=== PATIENT | female | born 1930 | race Caucasian/White ===

== ENCOUNTER 2017-03-15 09:48 | Inpatient (IN) | payer OTHER, MEDICARE ==
[~2017-03-15] VITALS: Ht 180.3 cm; Wt 84.1 kg
[2017-03-15] VITALS (9 sets, daily range): BP systolic 118–163; BP diastolic 64–85
--- NOTE | ~2017-03-15 | PR ---
[place], [place] PROGRESS NOTE NAME: KEITH KIRKLAND UNIT #: [id number] ROOM: 408 DOCTOR: NICKY GREEN MD BIRTHDATE: [birth year] DOS: 03/19/2017 REASON FOR VISIT: Atrial fibrillation. SUBJECTIVE: The patient is alert. No acute distress. She is very hard of hearing. Denies any chest pain or palpitations. She slept good last night. No dizziness. No orthopnea. REVIEW OF SYSTEMS: Review of the 8 systems negative except as mentioned above. RHYTHM STRIPS: The patient was off the monitor. PHYSICAL EXAMINATION: VITAL SIGNS: Blood pressure 152/90, respiratory rate is 16, heart rate 81. GENERAL: Alert, comfortable, in no acute distress. HEENT: Pupils are round and equal. No jaundice. Tongue was moist and pharynx was clear. NECK: Supple, no distended neck veins, no carotid bruit. CHEST: Symmetrical, nontender. LUNGS: Few scattered rhonchi, but good air entry bilaterally. HEART: Irregular. ABDOMEN: Benign, nontender. Bowel sounds normal. EXTREMITIES: Showed no edema. Distal pulses are palpable. SKIN: Warm and dry. No cyanosis, no clubbing. NEUROLOGIC: The patient is alert, oriented. No focal neurologic deficit. Medications and labs are reviewed as available. IMPRESSION: 1. Atrial fibrillation, rates are currently better. Continue her Cardizem and apixaban. 2. Urinary tract infection with pyelonephritis, per PCP. 3. Altered mental status, better. 4. Hypertension. PLAN: 1. Continue current medications and monitor her heart rate and blood pressures. 2. There is no family at bedside at the time of my examination. [place], [place] PROGRESS NOTE NAME: KEITH KIRKLAND UNIT #: [id number] ROOM: 408 DOCTOR: NICKY GREEN MD BIRTHDATE: [birth year] NICKY GREEN MD CM:PNTRANS [id number] NICKY GREEN MD 03/19/17 [id number] interface
--- NOTE | ~2017-03-15 | PR ---
[place], [place] PROGRESS NOTE NAME: KEITH KIRKLAND [facility] #: [id number] UNIT #: [id number] ROOM: 408 DOCTOR: ENA STEWARD MD BIRTHDATE: [birth year] DOS: 03/16/2017 SUBJECTIVE: The patient was seen today at her bedside for followup of her atrial fibrillation and rapid ventricular response. She is an 86-year-old resident of a [facility] who does have a history of significant dementia. She was brought in after being found unresponsive at the [facility]. We were asked to assist in the management of her permanent atrial fibrillation and rapid ventricular response. When I saw her yesterday, she was obtunded. Today, she is much more awake and alert. She was found to have bacteremia which most likely is of urinary infection source. With appropriate antibiotics, she has improved dramatically. She remains very hard of hearing and easily confused, but is much more pleasant and arousable today. She specifically denies chest pain or palpitations. PHYSICAL EXAMINATION: VITAL SIGNS: Today, her pulse is 92 and irregularly irregular. Blood pressure is 118/65. She is afebrile. She weighs 84.1 kilograms. HEENT: Normocephalic and atraumatic. Extraocular muscles are intact. Sclerae are clear. Pupils are equal, round and react to light. The oral mucosa is moist. Her tongue is midline. NECK: Supple. She has no jugular distention. Carotids are full. LUNGS: Respirations are unlabored. HEART: Has an irregularly irregular rhythm without murmurs or gallops. The PMI was not displaced. EXTREMITIES: Showed no edema. Peripheral pulses were diminished in the feet bilaterally. LABORATORY DATA: The monitor shows that her heart rate is better controlled today. She remains on a diltiazem drip. IMPRESSION: 1. Atrial fibrillation with rapid ventricular response. 2. History of permanent atrial fibrillation. 3. History of stroke, likely due to cardioembolic phenomenon from atrial fibrillation. 4. Bacteremia. 5. Rapid ventricular response to atrial fibrillation, most likely due to underlying sepsis, most likely of urinary tract origin. PLAN: The patient is much more awake today. We will continue apixaban for stroke prophylaxis and place her on diltiazem p.o., so that we can wean her off the intravenous diltiazem. We will continue to follow her with her other physicians. We thank the hospitalist group for asking our advice regarding her care. [place], [place] PROGRESS NOTE NAME: [facility]IRKLAND [id number] UNIT #: [id number] ROOM: 408 DOCTOR: ENA STEWARD MD BIRTHDATE: [birth year] ENA STEWARD MD CM:PNTRANS 18 ENA STEWARD MD 03/17/17 0043 interface
--- NOTE | ~2017-03-15 | PR ---
[place], [place] PROGRESS NOTE NAME: KEITH KIRKLAND UNIT #: [id number] ROOM: 408 DOCTOR: NICKY GREEN MD BIRTHDATE: [birth year] DOS: 03/18/2017 REASON FOR VISIT: Atrial fibrillation. HISTORY OF PRESENT ILLNESS: The patient is feeling better. Denies any chest pain. She is hard of hearing, no dizziness, no syncope, no orthopnea, no fever or chills. No cough. RHYTHM STRIPS: The patient is in atrial fibrillation. REVIEW OF SYSTEMS: Review of the 8 systems negative except as mentioned above. PHYSICAL EXAMINATION: VITAL SIGNS: Reviewed. GENERAL: The patient is alert and comfortable, no acute distress. HEENT: Pupils are round and equal. No jaundice. Tongue was moist and pharynx clear. NECK: Supple, no distended neck veins, no carotid bruit. CHEST: Symmetrical, nontender. LUNGS: A few scattered rhonchi. HEART: Irregularly irregular, grade 1/6 systolic murmur. ABDOMEN: Benign, nontender. Bowel sounds normal. EXTREMITIES: Showed no edema. Distal pulses are palpable. SKIN: Warm and dry. No cyanosis, no clubbing. NEUROLOGIC: The patient is alert. No focal neurologic deficit. IMPRESSION: 1. Atrial fibrillation with rapid ventricular rate, rates are better today, chronic atrial fibrillation. Continue her apixaban and Cardizem for rate control. 2. Pyelonephritis . 3. Urinary tract infection. 4. Continue rest of the medications. 5. There is no family at bedside. 6. Adjust the Cardizem for her blood pressure and heart rates. [place], [place] PROGRESS NOTE NAME: KEITH KIRKLAND UNIT #: [id number] ROOM: 408 DOCTOR: NICKY GREEN MD BIRTHDATE: [birth year] NICKY GREEN MD CM:PNTRANS [id number] NICKY GREEN MD 03/20/17 0615 interface
--- NOTE | ~2017-03-15 | CON ---
[place], [place] REPORT OF CONSULTATION NAME: KEITH KIRKLAND UNIT #: [id number] ROOM: 408 DOCTOR: ENA STEWARD MD BIRTHDATE: [birth year] DOS: 03/15/2017 REASON FOR CONSULTATION: Atrial fibrillation with rapid ventricular response and elevated troponin levels. HISTORY OF PRESENT ILLNESS: The patient is an 86-year-old resident of a [facility]. Unfortunately, the patient is unable to give any history. The history is obtained entirely from the Emergency Room records and much of their information was obtained from records at the alf. Reportedly, the patient does have a history of dementia, but is still conversant and active in the alf. She was found to be unresponsive and noted to be tachycardic. She was also nonverbal, but awake. Emergency medical services were called. She was initially hypoxemic, but oxygenation improved with supplementation. The patient was transferred to [facility] where she was found to be in atrial fibrillation with a rapid ventricular response. She was placed on diltiazem with improvement in her heart rate. The old records indicate that the patient has had atrial fibrillation in the past. She is currently on Eliquis for stroke prophylaxis. She has had a previous stroke. PAST MEDICAL HISTORY: Includes 1. Previous stroke. 2. Permanent atrial fibrillation. 3. Anticoagulation with Eliquis. 4. Dementia. 5. Hyperlipidemia. 6. Vitamin D deficiency. MEDICATIONS: Prior to admission, acetaminophen 325 q.4h. p.r.n., amino acids by capsule daily, apixaban 2.5 mg b.i.d., aspirin 81 mg daily, atorvastatin 10 mg daily, cholecalciferol 1000 units daily, Depakote 250 mg q.12h., Namzaric 07/22 daily, Dulcolax suppositories p.r.n. and nitroglycerin sublingually p.r.n. ALLERGIES: The chart indicates that she has no known drug allergies. FAMILY HISTORY: Not available. SOCIAL HISTORY: The patient resides in a alf. Her cigarette history and alcohol history are not available. PHYSICAL EXAMINATION: GENERAL: The patient is an elderly white female who is awake, alert and oriented. VITAL SIGNS: Pulse is currently 84 and irregularly irregular. Blood pressure is 126/70. She is on a diltiazem drip at 5 mg per hour. Her temperature is 99.4. She weighs 84.1 kilograms. HEENT: Normocephalic, atraumatic. Extraocular muscles are intact. Sclerae are clear. Pupils are round and reactive to light. The oral mucosa is moist. Tongue is midline. [place], [place] REPORT OF CONSULTATION NAME: KEITH KIRKLAND UNIT #: [id number] ROOM: 408 DOCTOR: ENA STEWARD MD BIRTHDATE: [birth year] NECK: Supple. She has no jugular distention. Carotids are full and I heard no bruits. LUNGS: Respirations were unlabored. The chest had decreased breath sounds at the bases. I heard no wheezes or rales. CARDIOVASCULAR: Her heart had an irregularly irregular rhythm without murmurs or gallops. The PMI was not displaced. ABDOMEN: Soft and normally active without masses, organomegaly or bruits. EXTREMITIES: Showed no edema. Her left calf seemed tender, but there were no palpable cords, her right calf was minimally tender. Both legs appeared to be about the same size. Peripheral pulses are diminished in the feet bilaterally. LABORATORY DATA: Electrocardiogram on admission showed atrial fibrillation with a rapid ventricular response and poor precordial R-wave progression along with nonspecific ST and T-wave changes. Chest x-ray on admission showed no acute cardiopulmonary process. Hemoglobin is 13.1, white count 5500, platelet count 106,000. Sodium is 146, potassium 4.4, chloride 105, CO2 24, BUN 29, creatinine 1.27, GFR is estimated at 40. Lactic acid level was 3.7. Troponin levels 0.057 on admission and elevated further at 0.072 upon repeat. Urinalysis shows 3+ blood and 2+ protein. Urine nitrite is positive. IMPRESSIONS: 1. Atrial fibrillation with rapid ventricular response. 2. Reported history of permanent atrial fibrillation. 3. History of stroke probably due to cardioembolic phenomenon from atrial fibrillation. 4. Rapid ventricular response to atrial fibrillation, most likely due to underlying sepsis, possibly of urinary tract origin. PLAN: The patient is currently on a diltiazem intravenously and I would continue that until her infection is adequately controlled and any dehydration has been corrected. I would keep her on apixaban in reduced dose for stroke prophylaxis. If she is unable to take orally, I would place her on intravenous unfractionated heparin for the time being. We will obtain an echocardiogram to assess left ventricular function and I will follow her with her other physicians in the hospital. I thank the hospitalist group for asking our advice regarding her care. [place], [place] REPORT OF CONSULTATION NAME: KEITH KIRKLAND UNIT #: [id number] ROOM: 408 DOCTOR: ENA STEWARD MD BIRTHDATE: [birth year] ENA STEWARD MD CM:CONSTR:REPORT OF CONSULTATION 19 03/15/178 interface
--- NOTE | ~2017-03-15 | PR ---
[place], [place] PROGRESS NOTE NAME: KEITH KIRKLAND UNIT #: [id number] ROOM: 408 DOCTOR: ENA STEWARD MD BIRTHDATE: [birth year] DOS: SUBJECTIVE: The patient was seen at her bedside for followup of her atrial fibrillation with rapid ventricular response. She is an 86-year-old prison resident with severe dementia who presented to the hospital unresponsive. She was in atrial fibrillation with rapid ventricular response. Her rate was controlled with intravenous diltiazem. She was found to have Gram-negative bacteremia, which most likely is from urinary tract source. Studies indicate that she does have pyelonephritis and possible cholecystitis as well. She is being managed conservatively and medically for the time being. Her heart rates have decreased and she is more alert, but still confused. PHYSICAL EXAMINATION: VITAL SIGNS: Today, her pulse is 85 and irregularly irregular. Blood pressure is 137/70. She is afebrile. NECK: Supple. She has no jugular distention. Carotids are full. LUNGS: Respirations are unlabored. Her chest is clear. HEART: Has an irregularly irregular rhythm. EXTREMITIES: Showed trace edema bilaterally. Her echocardiogram yesterday showed normal left ventricular size with mild concentric left ventricular hypertrophy. Left ventricular segmental wall motion was normal with normal systolic function, ejection fraction was 65%. Left atrium was mildly dilated. She had aortic sclerosis without stenosis and with mild aortic insufficiency. IMPRESSION: 1. Atrial fibrillation with rapid ventricular response. 2. History of permanent atrial fibrillation. 3. History of cardioembolic stroke. 4. Rapid ventricular response to atrial fibrillation, most likely due to sepsis. 5. Possible pyelonephritis with urinary sepsis. PLAN: We will continue to adjust her diltiazem to control her heart rate. No other cardiac workup is planned at this time. We thank the hospitalist group for asking our advice regarding her care. [place], [place] PROGRESS NOTE NAME: KEITH KIRKLAND UNIT #: [id number] ROOM: 408 DOCTOR: ENA STEWARD MD BIRTHDATE: [birth year] ENA STEWARD MD CM:PNTRANS [phone] ENA STEWARD MD 03/18/17 0155 interface
[2017-03-15] MEDS ORDERED: ASPIRIN CHEWABL81 MG PO (09:55)
[2017-03-15] MEDS ORDERED: DULCOLAX10 M1 R (09:56)
[2017-03-15] MEDS ORDERED: DEPAKOTE250 MG PO (09:56)
[2017-03-15] MEDS ORDERED: ELIQUIS2.5 M1 PO (09:57)
[2017-03-15] MEDS ORDERED: LIPITOR10 MG PO (09:57)
[2017-03-15] MEDS ORDERED: AMINO ACID1 EACH PO (09:57)
[2017-03-15] MEDS ORDERED: NAMZARIC 28 MG1 EACH PO (09:58)
[2017-03-15] MEDS ORDERED: NITROSTAT0.4 MG SL (09:58)
[2017-03-15] MEDS ORDERED: TYLENOL325 M1 PO (09:59)
[2017-03-15] MEDS ORDERED: VITAMIN D-32000 UNI1 PO (09:59)
[2017-03-15 10:35] LABS: HEMATOCRIT 40.7 % (37.0-47.0); HEMOGLOBIN 13.1 g/dl (12.0-16.0); MEAN CELL VOLUME 103.6 fl (81.0-99.0); MEAN CORPUSCULAR HGB 33.3 pg (27.0-31.0); MEAN CORPUSCULAR HGB CONC 32.2 g/dl (33.0-37.0); RED BLOOD COUNT 3.93 10*6/uL (4.10-5.10); RED CELL DISTRI WIDTH 13.3 % (0-14.5); WHITE BLOOD COUNT 5.5 10*3/uL (4.8-10.8)
[2017-03-15 10:43] LABS: PROTHROMBIN TIME 10.9 SECONDS (9.0-12.4)
[2017-03-15 10:53] LABS: ALBUMIN 2.7 gm/dl (3.1-4.5); BILIRUBIN, TOTAL 0.9 mg/dl (0.2-1.0); POTASSIUM 4.4 mmol/L (3.5-5.1); TOTAL PROTEIN 7.8 gm/dL (6.4-8.2)
[2017-03-15 10:56] LABS: BASOPHIL # 0.1 10*3/uL (0-0.1); BASOPHILS 1 % (0-1); LYMPHOCYTE # 0.4 10*3/uL (1.3-4.4); METAMYELOCYTES 2 % (0-0); MONOCYTE # 0.1 10*3/uL (0.1-1.0); MYELOCYTES 2 % (0-0); NEUTROPHIL # 4.7 10*3/uL (2.3-7.9); NEUTROPHILS 86 % (47-73); TOTAL CELLS COUNTED 100 #CELLS; VACUOLATION OF NEUTROPHILS MODERATE
[2017-03-15 10:57] LABS: PLATELET SUFFICIENCY LOW (NORMAL); ROULEAUX SLIGHT
[2017-03-15 11:00] LABS: TROPONIN I 0.057 ng/ml (<0.045)
[2017-03-15 11:02] LABS: MEAN PLATELET VOLUME 10.8 fl (9.6-12.3); PLATELET COUNT AUTOMATED 106 10*3/uL (130-400)
[2017-03-15 11:11] LABS: BILIRUBIN NEGATIVE (NEGATIVE); BLOOD 3+ (NEGATIVE); CLARITY CLOUDY (CLEAR); COLOR YELLOW (YELLOW); GLUCOSE NEGATIVE (NEGATIVE); KETONE 1+ (NEGATIVE); LEUKO ESTERASE TRACE (NEGATIVE); NITRITE POSITIVE (NEGATIVE); PROTEIN 2+ (NEGATIVE); SPECIFIC GRAVITY 1.015 (1.005-1.030)
[2017-03-15 11:18] LABS: BACTERIA 3+; RBC 51-100 rbc/hpf (0-2); URINE REFLEX COMMENT YES (NO)
[2017-03-15 12:32] LABS: LA>2 REFLEX 2 HR DRAW NOW
[2017-03-15 13:19] LABS: LA>2 RFLX FOLLOW UP AT 2 HRS 3.7 mmol/L (0.4-2.0)
[2017-03-15 14:46] LABS: LA>2 REFLEX 4 HR DRAW NOW
[2017-03-15 18:33] LABS: CKMB 0.8 ng/ml (0.5-3.6)
[2017-03-16] VITALS (11 sets, daily range): BP systolic 100–147; BP diastolic 50–85
[2017-03-16 00:35] LABS: CKMB 0.9 ng/ml (0.5-3.6)
[2017-03-16 06:07] LABS: MEAN CELL VOLUME 102.7 fl (81.0-99.0); MEAN CORPUSCULAR HGB 33.4 pg (27.0-31.0); MEAN CORPUSCULAR HGB CONC 32.6 g/dl (33.0-37.0); MEAN PLATELET VOLUME 10.4 fl (9.6-12.3); RED BLOOD COUNT 2.99 10*6/uL (4.10-5.10); RED CELL DISTRI WIDTH 13.4 % (0-14.5); WHITE BLOOD COUNT 12.9 10*3/uL (4.8-10.8)
[2017-03-16 06:10] LABS: HEMATOCRIT 30.7 % (37.0-47.0); PLATELET COUNT AUTOMATED 70 10*3/uL (130-400)
[2017-03-16 06:19] LABS: CKMB 0.5 ng/ml (0.5-3.6)
[2017-03-16 06:20] LABS: HEMOGLOBIN A1c 6.3 % (4.8-5.6)
[2017-03-16 06:26] LABS: LYMPHOCYTE # 0.9 10*3/uL (1.3-4.4); MONOCYTE # 1.3 10*3/uL (0.1-1.0); MYELOCYTES 2 % (0-0); NEUTROPHIL # 10.4 10*3/uL (2.3-7.9); NEUTROPHILS 81 % (47-73); TOTAL CELLS COUNTED 100 #CELLS
[2017-03-16 06:27] LABS: PLATELET SUFFICIENCY LOW (NORMAL); POLYCHROMASIA SLIGHT
[2017-03-16 06:42] LABS: BUN 27 mg/dl (7-24); CARBON DIOXIDE 22 mmol/L (21-32); CHLORIDE 116 mmol/L (98-107); CHOLESTEROL 79 mg/dL (<200); EST GLOM FILT AFRICAN AMERICAN > 60 ml/min; FREE T4 1.29 ng/dl (0.76-1.46); GLUCOSE 122 mg/dL (65-99); HDL CHOLESTEROL 32 mg/dl (40-60); LDL CHOLESTEROL 28 mg/dL (9-159); MAGNESIUM 1.8 mg/dL (1.5-2.1); PHOSPHOROUS 1.9 mg/dL (2.5-4.9); SODIUM 150 mmol/L (136-145); TRIGLYCERIDES 96 mg/dl (<150); VLDL CHOLESTEROL 19 mg/dL (6-40)
[2017-03-16 06:49] LABS: POTASSIUM 3.4 mmol/L (3.5-5.1)
[2017-03-17] VITALS (7 sets, daily range): BP systolic 130–154; BP diastolic 60–78
[2017-03-17 06:13] LABS: HEMATOCRIT 32.1 % (37.0-47.0); HEMOGLOBIN 10.3 g/dl (12.0-16.0); MEAN CELL VOLUME 101.3 fl (81.0-99.0); MEAN CORPUSCULAR HGB 32.5 pg (27.0-31.0); MEAN CORPUSCULAR HGB CONC 32.1 g/dl (33.0-37.0); MEAN PLATELET VOLUME 11.4 fl (9.6-12.3); PLATELET COUNT AUTOMATED 85 10*3/uL (130-400); RED BLOOD COUNT 3.17 10*6/uL (4.10-5.10); RED CELL DISTRI WIDTH 13.4 % (0-14.5); WHITE BLOOD COUNT 12.5 10*3/uL (4.8-10.8)
[2017-03-17 06:49] LABS: BUN 24 mg/dl (7-24); CARBON DIOXIDE 23 mmol/L (21-32); CHLORIDE 111 mmol/L (98-107); EST GLOM FILT AFRICAN AMERICAN > 60 ml/min; GLUCOSE 156 mg/dL (65-99); POTASSIUM 3.2 mmol/L (3.5-5.1); SODIUM 145 mmol/L (136-145)
[2017-03-17 07:37] LABS: BURR CELLS MODERATE; LYMPHOCYTE # 1.6 10*3/uL (1.3-4.4); METAMYELOCYTES 2 % (0-0); MONOCYTE # 1.5 10*3/uL (0.1-1.0); NEUTROPHIL # 9.1 10*3/uL (2.3-7.9); NEUTROPHILS 73 % (47-73); PLATELET SUFFICIENCY LOW (NORMAL); POLYCHROMASIA SLIGHT; TOTAL CELLS COUNTED 100 #CELLS
[2017-03-18] VITALS: BP 149/77
[2017-03-18 06:24] LABS: HEMATOCRIT 30.9 % (37.0-47.0); HEMOGLOBIN 10.1 g/dl (12.0-16.0); MEAN CELL VOLUME 101.3 fl (81.0-99.0); MEAN CORPUSCULAR HGB 33.1 pg (27.0-31.0); MEAN CORPUSCULAR HGB CONC 32.7 g/dl (33.0-37.0); MEAN PLATELET VOLUME 10.7 fl (9.6-12.3); NUCLEATED RED BLOOD CELL 0.2 % (0.0-0.0); PLATELET COUNT AUTOMATED 72 10*3/uL (130-400); RED BLOOD COUNT 3.05 10*6/uL (4.10-5.10); RED CELL DISTRI WIDTH 13.4 % (0-14.5); WHITE BLOOD COUNT 12.3 10*3/uL (4.8-10.8)
[2017-03-18 06:53] LABS: ALBUMIN 1.6 gm/dl (3.1-4.5); ALKALINE PHOSPHATASE 80 U/L (45-117); BILIRUBIN, TOTAL 0.4 mg/dl (0.2-1.0); BUN 17 mg/dl (7-24); C-REACTIVE PROTEIN 8.95 MG/DL (0-0.3); CARBON DIOXIDE 23 mmol/L (21-32); CHLORIDE 109 mmol/L (98-107); EST GLOM FILT AFRICAN AMERICAN > 60 ml/min; GLUCOSE 105 mg/dL (65-99); MAGNESIUM 1.8 mg/dL (1.5-2.1); POTASSIUM 3.4 mmol/L (3.5-5.1); SGOT/AST 17 IU/L (3-35); SGPT/ALT 13 U/L (12-78); SODIUM 140 mmol/L (136-145); TOTAL PROTEIN 5.3 gm/dL (6.4-8.2)
[2017-03-18 07:16] LABS: BASOPHIL # 0.1 10*3/uL (0-0.1); BASOPHILS 1 % (0-1); LYMPHOCYTE # 2.1 10*3/uL (1.3-4.4); METAMYELOCYTES 3 % (0-0); MONOCYTE # 1.6 10*3/uL (0.1-1.0); MYELOCYTES 3 % (0-0); NEUTROPHIL # 7.7 10*3/uL (2.3-7.9); NEUTROPHILS 63 % (47-73); TOTAL CELLS COUNTED 100 #CELLS; TOXIC GRANULATION SLIGHT
[2017-03-18 07:17] LABS: PLATELET SUFFICIENCY LOW (NORMAL)
[2017-03-18 08:00] VITALS: BP 162/92
[2017-03-18 12:00] VITALS: BP 133/73
[2017-03-18 16:00] VITALS: BP 130/52
[2017-03-18 20:00] VITALS: BP 149/60
[2017-03-19] VITALS: BP 155/72
[2017-03-19 06:02] LABS: HEMATOCRIT 33.4 % (37.0-47.0); MEAN CELL VOLUME 99.1 fl (81.0-99.0); MEAN CORPUSCULAR HGB 32.6 pg (27.0-31.0); MEAN CORPUSCULAR HGB CONC 32.9 g/dl (33.0-37.0); MEAN PLATELET VOLUME 10.7 fl (9.6-12.3); PLATELET COUNT AUTOMATED 81 10*3/uL (130-400); RED BLOOD COUNT 3.37 10*6/uL (4.10-5.10); RED CELL DISTRI WIDTH 13.2 % (0-14.5)
[2017-03-19 06:27] LABS: BUN 12 mg/dl (7-24); CARBON DIOXIDE 22 mmol/L (21-32); CHLORIDE 105 mmol/L (98-107); EST GLOM FILT AFRICAN AMERICAN > 60 ml/min; GLUCOSE 107 mg/dL (65-99); MAGNESIUM 1.8 mg/dL (1.5-2.1); PHOSPHOROUS 2.3 mg/dL (2.5-4.9); POTASSIUM 3.8 mmol/L (3.5-5.1); SODIUM 138 mmol/L (136-145)
[2017-03-19 06:39] LABS: EOSINOPHIL # 0.2 10*3/uL (0-0.4); EOSINOPHILS 1 % (1-4); LYMPHOCYTE # 2.2 10*3/uL (1.3-4.4); METAMYELOCYTES 5 % (0-0); MONOCYTE # 1.5 10*3/uL (0.1-1.0); MYELOCYTES 11 % (0-0); NEUTROPHIL # 10.4 10*3/uL (2.3-7.9); NEUTROPHILS 61 % (47-73); PLATELET SUFFICIENCY LOW (NORMAL); TOTAL CELLS COUNTED 100 #CELLS
[2017-03-19 06:40] LABS: POLYCHROMASIA SLIGHT
[2017-03-19 08:00] VITALS: BP 152/90
[2017-03-19 12:00] VITALS: BP 156/78
[2017-03-19 16:00] VITALS: BP 160/90
[2017-03-19 18:00] VITALS: BP 158/82; BP 160/90
[2017-03-19 20:00] VITALS: BP 145/76
[2017-03-20] VITALS: BP 140/90
[2017-03-20 06:30] LABS: HEMATOCRIT 32.8 % (37.0-47.0); HEMOGLOBIN 10.9 g/dl (12.0-16.0); MEAN CELL VOLUME 99.1 fl (81.0-99.0); MEAN CORPUSCULAR HGB 32.9 pg (27.0-31.0); MEAN CORPUSCULAR HGB CONC 33.2 g/dl (33.0-37.0); MEAN PLATELET VOLUME 10.3 fl (9.6-12.3); PLATELET COUNT AUTOMATED 89 10*3/uL (130-400); RED BLOOD COUNT 3.31 10*6/uL (4.10-5.10); RED CELL DISTRI WIDTH 13.1 % (0-14.5); WHITE BLOOD COUNT 17.7 10*3/uL (4.8-10.8)
[2017-03-20 06:59] LABS: ALBUMIN 1.7 gm/dl (3.1-4.5); ALKALINE PHOSPHATASE 81 U/L (45-117); BILIRUBIN, TOTAL 0.4 mg/dl (0.2-1.0); BUN 10 mg/dl (7-24); CARBON DIOXIDE 23 mmol/L (21-32); CHLORIDE 104 mmol/L (98-107); EST GLOM FILT AFRICAN AMERICAN > 60 ml/min; GLUCOSE 114 mg/dL (65-99); MAGNESIUM 1.8 mg/dL (1.5-2.1); SGOT/AST 20 IU/L (3-35); SGPT/ALT 14 U/L (12-78); SODIUM 137 mmol/L (136-145); TOTAL PROTEIN 5.8 gm/dL (6.4-8.2)
[2017-03-20 07:16] LABS: EOSINOPHIL # 0.2 10*3/uL (0-0.4); EOSINOPHILS 1 % (1-4); LYMPHOCYTE # 2.5 10*3/uL (1.3-4.4); METAMYELOCYTES 1 % (0-0); MONOCYTE # 1.4 10*3/uL (0.1-1.0); MYELOCYTES 5 % (0-0); NEUTROPHIL # 12.6 10*3/uL (2.3-7.9); NEUTROPHILS 71 % (47-73); PLATELET SUFFICIENCY LOW (NORMAL); TOTAL CELLS COUNTED 100 #CELLS; TOXIC GRANULATION SLIGHT
[2017-03-20 07:56] VITALS: BP 142/84
[2017-03-20 12:00] VITALS: BP 150/68
[2017-03-20 16:00] VITALS: BP 160/82
[2017-03-20 20:00] VITALS: BP 143/80
[2017-03-21] VITALS: BP 146/73
[2017-03-21 06:54] LABS: HEMATOCRIT 32.6 % (37.0-47.0); HEMOGLOBIN 11.4 g/dl (12.0-16.0); MEAN CORPUSCULAR HGB 33.5 pg (27.0-31.0); WHITE BLOOD COUNT 21.7 10*3/uL (4.8-10.8)
[2017-03-21 07:02] LABS: MEAN CELL VOLUME 95.9 fl (81.0-99.0); PLATELET COUNT AUTOMATED 127 10*3/uL (130-400)
[2017-03-21 07:19] LABS: ALBUMIN 1.7 gm/dl (3.1-4.5); ALKALINE PHOSPHATASE 69 U/L (45-117); BILIRUBIN, TOTAL 0.4 mg/dl (0.2-1.0); BUN 12 mg/dl (7-24); CARBON DIOXIDE 22 mmol/L (21-32); CHLORIDE 105 mmol/L (98-107); EST GLOM FILT AFRICAN AMERICAN > 60 ml/min; GLUCOSE 114 mg/dL (65-99); MAGNESIUM 1.8 mg/dL (1.5-2.1); SGOT/AST 16 IU/L (3-35); SGPT/ALT 13 U/L (12-78); SODIUM 137 mmol/L (136-145); TOTAL PROTEIN 5.8 gm/dL (6.4-8.2)
[2017-03-21 07:36] LABS: LYMPHOCYTE # 3.9 10*3/uL (1.3-4.4); METAMYELOCYTES 1 % (0-0); MONOCYTE # 1.5 10*3/uL (0.1-1.0); MYELOCYTES 3 % (0-0); NEUTROPHIL # 15.4 10*3/uL (2.3-7.9); NEUTROPHILS 71 % (47-73); PLATELET SUFFICIENCY LOW (NORMAL); TOTAL CELLS COUNTED 100 #CELLS; TOXIC GRANULATION SLIGHT
[2017-03-21 08:00] VITALS: BP 158/76
[2017-03-21 12:00] VITALS: BP 147/72
[2017-03-21 16:00] VITALS: BP 157/65
[2017-03-21 20:00] VITALS: BP 146/72
[2017-03-22] VITALS: BP 152/78
[2017-03-22 06:20] LABS: HEMATOCRIT 32.7 % (37.0-47.0); HEMOGLOBIN 10.7 g/dl (12.0-16.0); MEAN CORPUSCULAR HGB 32.6 pg (27.0-31.0); MEAN CORPUSCULAR HGB CONC 32.7 g/dl (33.0-37.0); MEAN PLATELET VOLUME 10.2 fl (9.6-12.3); RED BLOOD COUNT 3.28 10*6/uL (4.10-5.10); RED CELL DISTRI WIDTH 13.2 % (0-14.5); WHITE BLOOD COUNT 19.1 10*3/uL (4.8-10.8)
[2017-03-22 06:29] LABS: MEAN CELL VOLUME 99.7 fl (81.0-99.0); PLATELET COUNT AUTOMATED 188 10*3/uL (130-400)
[2017-03-22 06:55] LABS: LYMPHOCYTE # 0.8 10*3/uL (1.3-4.4); METAMYELOCYTES 3 % (0-0); MYELOCYTES 6 % (0-0); NEUTROPHIL # 15.7 10*3/uL (2.3-7.9); NEUTROPHILS 82 % (47-73); PLATELET SUFFICIENCY NORMAL (NORMAL); TOTAL CELLS COUNTED 100 #CELLS
[2017-03-22 08:00] VITALS: BP 143/67
[2017-03-22 12:00] VITALS: BP 147/74
[2017-03-22 16:00] VITALS: BP 143/59
[2017-03-22 20:00] VITALS: BP 141/79
[2017-03-23] VITALS: BP 133/67
[2017-03-23 06:21] LABS: HEMATOCRIT 29.8 % (37.0-47.0); HEMOGLOBIN 9.6 g/dl (12.0-16.0); MEAN CELL VOLUME 100.7 fl (81.0-99.0); MEAN CORPUSCULAR HGB 32.4 pg (27.0-31.0); MEAN CORPUSCULAR HGB CONC 32.2 g/dl (33.0-37.0); MEAN PLATELET VOLUME 9.4 fl (9.6-12.3); PLATELET COUNT AUTOMATED 232 10*3/uL (130-400); RED BLOOD COUNT 2.96 10*6/uL (4.10-5.10); RED CELL DISTRI WIDTH 13.4 % (0-14.5); WHITE BLOOD COUNT 17.3 10*3/uL (4.8-10.8)
[2017-03-23 06:43] LABS: EOSINOPHIL # 0.2 10*3/uL (0-0.4); EOSINOPHILS 1 % (1-4); LYMPHOCYTE # 2.2 10*3/uL (1.3-4.4); METAMYELOCYTES 2 % (0-0); MONOCYTE # 0.7 10*3/uL (0.1-1.0); MYELOCYTES 2 % (0-0); NEUTROPHIL # 13.5 10*3/uL (2.3-7.9); NEUTROPHILS 78 % (47-73); TOTAL CELLS COUNTED 100 #CELLS
[2017-03-23 06:44] LABS: PLATELET SUFFICIENCY NORMAL (NORMAL); TOXIC GRANULATION SLIGHT
[2017-03-23 06:51] LABS: BUN 12 mg/dl (7-24); CARBON DIOXIDE 24 mmol/L (21-32); CHLORIDE 104 mmol/L (98-107); EST GLOM FILT AFRICAN AMERICAN > 60 ml/min; GLUCOSE 99 mg/dL (65-99); POTASSIUM 3.8 mmol/L (3.5-5.1); SODIUM 137 mmol/L (136-145)
[2017-03-23 08:00] VITALS: BP 122/52
[2017-03-23 12:00] VITALS: BP 127/68
[2017-03-23 16:00] VITALS: BP 155/73
[2017-03-23 20:00] VITALS: BP 149/80
[2017-03-24] VITALS: BP 133/63
[2017-03-24 06:06] LABS: BUN 11 mg/dl (7-24); CARBON DIOXIDE 25 mmol/L (21-32); CHLORIDE 102 mmol/L (98-107); EST GLOM FILT AFRICAN AMERICAN > 60 ml/min; GLUCOSE 111 mg/dL (65-99); POTASSIUM 3.7 mmol/L (3.5-5.1); SODIUM 136 mmol/L (136-145)
[2017-03-24 06:13] LABS: MEAN CELL VOLUME 99.7 fl (81.0-99.0); MEAN CORPUSCULAR HGB 33.2 pg (27.0-31.0); MEAN CORPUSCULAR HGB CONC 33.3 g/dl (33.0-37.0); MEAN PLATELET VOLUME 9.6 fl (9.6-12.3); RED BLOOD COUNT 3.01 10*6/uL (4.10-5.10); RED CELL DISTRI WIDTH 13.2 % (0-14.5); WHITE BLOOD COUNT 21.5 10*3/uL (4.8-10.8)
[2017-03-24 06:20] LABS: PLATELET COUNT AUTOMATED 325 10*3/uL (130-400)
[2017-03-24 06:52] LABS: LYMPHOCYTE # 1.9 10*3/uL (1.3-4.4); MONOCYTE # 1.5 10*3/uL (0.1-1.0); MYELOCYTES 2 % (0-0); NEUTROPHIL # 17.6 10*3/uL (2.3-7.9); NEUTROPHILS 82 % (47-73); TOTAL CELLS COUNTED 100 #CELLS
[2017-03-24 06:53] LABS: PLATELET SUFFICIENCY NORMAL (NORMAL)
[2017-03-24 08:00] VITALS: BP 149/72
[2017-03-24 12:00] VITALS: BP 148/74
[2017-03-24] MEDS ORDERED: CIPRO500 MG PO (12:39)
== END 2017-03-24 14:43 | DRG 871 ==
LOC: ED 09:48 → 4E 11:33 → EDHOLD 11:33 → 4E 11:46
PROVIDERS: Emergency Medicine; Hospitalist; Internal Medicine; Registered Nurse; Student in an Organized Health Care Education/Training Program
PROC: 02HV33Z Insertion of Infusion Device into Superior Vena Cava, Percutaneous Approach (ICD-10-PCS; principal; 2017-03-17)
DX: A41.9 Sepsis, unspecified organism (principal); N17.0 Acute kidney failure with tubular necrosis; E43 Unspecified severe protein-calorie malnutrition; E87.0 Hyperosmolality and hypernatremia; D69.6 Thrombocytopenia, unspecified; I48.2 Chronic atrial fibrillation; E86.0 Dehydration; F03.90 Unspecified dementia, unspecified severity, without behavioral disturbance, psychotic disturbance, mood disturbance, and anxiety; E83.39 Other disorders of phosphorus metabolism; J98.11 Atelectasis; N10 Acute pyelonephritis; I10 Essential (primary) hypertension; R65.20 Severe sepsis without septic shock; D53.9 Nutritional anemia, unspecified; E87.6 Hypokalemia; B96.20 Unspecified Escherichia coli [E. coli] as the cause of diseases classified elsewhere; B96.89 Other specified bacterial agents as the cause of diseases classified elsewhere; Z79.1 Long term (current) use of non-steroidal anti-inflammatories (NSAID); Z86.73 Personal history of transient ischemic attack (TIA), and cerebral infarction without residual deficits; Z79.82 Long term (current) use of aspirin; Z79.899 Other long term (current) drug therapy

== ENCOUNTER 2018-09-10 21:17 | Emergency (ER) | payer OTHER ==
[~2018-09-10] VITALS: Ht 160 cm; Wt 65.8 kg
[~2018-09-10 21:17] MED LIST: AMINO ACID1 EACH PO; ASPIRIN CHEWABL81 MG PO; CIPRO500 MG PO; DEPAKOTE250 MG PO; DULCOLAX10 M1 R; ELIQUIS2.5 M1 PO; LIPITOR10 MG PO; NAMZARIC 28 MG1 EACH PO; NITROSTAT0.4 MG SL; TYLENOL325 M1 PO; VITAMIN D-32000 UNI1 PO
== END 2018-09-10 23:02 | disposition home or self-care (01) ==
LOC: ED 21:17
DX: Z51.5 Encounter for palliative care (principal); R53.1 Weakness; I48.91 Unspecified atrial fibrillation; I10 Essential (primary) hypertension; Z86.73 Personal history of transient ischemic attack (TIA), and cerebral infarction without residual deficits; Z79.2 Long term (current) use of antibiotics; Z79.899 Other long term (current) drug therapy; Z79.82 Long term (current) use of aspirin